=== PATIENT | male | born 1960 | race Caucasian/White ===

== ENCOUNTER 2016-12-19 08:23 | Emergency (ER) | payer BC ==
--- NOTE | 2016-12-21 13:10 | ER ---
ADMIT: 12/19/2016 RM/LOC: ER [facility] MR#: [id number] [address] [id number] ZOIE MORAES [address] [place] [address] Emergency Room Report SEX: M AGE: 56 : 1960 DATE: 12/19/2016 A 56-year-old gentleman comes to the Emergency Department with inability to have a bowel movement for the past several days. He is on narcotic secondary to an umbilical hernia surgery, which was done earlier in the week. He had 1 episode of vomiting last night. No BM for the past 4 days, which is unusual for him. See T-sheet for remainder of history and physical. X-ray revealed stool on the right side. He was given soapsuds in the Emergency Department, did not have a bowel movement; therefore, CT scan of the abdomen was obtained the results of which were only for enteritis and stool on the right side. He was subsequently discharged with diagnoses of constipation, enteritis. He was given a prescription for Zofran and GoLYTELY, instructed to stop his narcotics and to follow up this coming week if not better. José Graham MD/ víctor JOB #: [id number] CC: José Graham MD, Attending Physician Ramírez Berrios DO, Family Physician
== END 2016-12-19 12:30 | disposition home or self-care (01) ==
LOC: ER 08:23
DX: K52.9 Noninfective gastroenteritis and colitis, unspecified (principal); K59.00 Constipation, unspecified; Z79.899 Other long term (current) drug therapy